=== PATIENT | female | born 1985 | race Two or more races ===

== ENCOUNTER 2019-01-26 14:08 | Emergency (ER) | payer OTHER ==
[~2019-01-26] VITALS: Ht 162.6 cm; Wt 106.6 kg
[2019-01-26] MEDS ORDERED: SKELAXIN800 MG PO (18:36)
[2019-01-26] MEDS ORDERED: CELEBREX100 MG PO (18:36)
== END 2019-01-26 18:59 | disposition home or self-care (01) ==
LOC: ER 14:08
DX: G44.009 Cluster headache syndrome, unspecified, not intractable (principal)

== ENCOUNTER → 2019-05-17 | Emergency (ER) | payer OTHER ==
[~2019-05-17] VITALS: Ht 162.6 cm; Wt 106.6 kg
[~2019-05-17] MED LIST: CELEBREX100 MG PO; SKELAXIN800 MG PO
== END | disposition left against medical advice (07) ==
LOC: ER 23:29
DX: Z53.20 Procedure and treatment not carried out because of patient's decision for unspecified reasons (principal)